=== PATIENT | female | born 1955 | race Caucasian/White ===

== ENCOUNTER 2017-11-08 05:14 | Inpatient (IN) ==
[2017-11-08 05:32] VITALS: BMI 36.5
[2017-11-08] MEDS ORDERED: TRANEXAMIC ACID 1,000 MG in NS 100 ML IV ONE ×2 (06:00→07:00)
[2017-11-08] MEDS ORDERED: MELOXICAM 15 MG TABLET PO ONE (06:00)
[2017-11-08] MEDS: LR 1,000 ML IV SCH ×2 (06:00→08:49)
[2017-11-08] MEDS ORDERED: METOCLOPRAMIDE 10mg/2ml INJECTION IVP ONE (06:00)
[2017-11-08] MEDS ORDERED: ACETAMINOPHEN 500 MG TABLET PO ONE (06:00)
[2017-11-08] MEDS ORDERED: LIDOCAINE 1% (10mg/ml) 2mL INJ PF SDV ID ONE (06:00)
[2017-11-08] MEDS ORDERED: FAMOTIDINE PB 20 MG/50 ML BAG IV ONE (06:00)
[2017-11-08] MEDS ORDERED: ONDANSETRON 4 MG/2 ML INJECTION IVP ONE (06:00)
[2017-11-08] MEDS ORDERED: CLINDAMYCIN PB 900 MG/50 ML BAG IV ONE (06:00)
[2017-11-08] MEDS ORDERED: NOZIN NASAL SWAB NAS ONE ×3 (06:12→11:19)
[2017-11-08] MEDS ORDERED: VANCOMYCIN 1,000 MG INJECTION ONE (07:43)
--- NOTE | 2017-11-08 07:50 | Anesthesia Preoperative Report ---
Anesthesia Preoperative Record - Date and Time Date: 11/08/17 Preoperative Diagnosis: Lt TKA M17.12 NPO Since Date: 11/07/17 NPO Since Time: 20:00 Allergies/Adverse Reactions: Allergies Allergy/AdvReac Type Severity Reaction Status Date / Time cephalexin Allergy Unknown Hives Verified 11/08/17 05:47 lisinopril AdvReac Unknown Cough Verified 11/08/17 05:47 Penicillins AdvReac Unknown all family Verified 11/08/17 05:47 members w/ severe reaction Sulfa (Sulfonamide AdvReac Unknown upset Verified 11/08/17 05:47 Antibiotics) stomach - Vital Signs Vital Signs: Temperature 98.1 F 11/08/17 05:33 Pulse Rate 60 11/08/17 05:57 Respiratory Rate 18 11/08/17 05:33 Blood Pressure 170/72 H 11/08/17 05:33 Pulse Oximetry 97 11/08/17 05:33 Height and Weight: Height 1.63 m Weight 96.5 kg Body Mass Index 36.5 - Medications Inpatient Medications: Current Medications Epinephrine HCl 0.25 mg/Bupivacaine HCl 30 ml/Morphine Sulfate 15 mg/Ketorolac Tromethamine 60 mg/Sodium Chloride 65.25 mls @ 0 mls/hr OPSITE INTRAOP ONE; Per Protocol PRN Reason: Protocol Stop: 11/08/17 08:01 Lactated Ringer's (Lactated Ringers) 1,000 mls @ 50 mls/hr IV .Q20H ANDREA Last Admin: 11/08/17 06:00 Dose: 50 mls/hr Isopropyl Alcohol (Nozin Nasal Swab) 1 each CONNOR O ONE Stop: 11/08/17 11:20 Isopropyl Alcohol (Nozin Nasal Swab) 1 each CONNOR 0600,1400,2200 [facility] Sodium Chloride (Iv Flush) 10 - 80 ml IV PRN PRN PRN Reason: [place] Home Medications: Home Medications Medication Instructions Recorded Confirmed Type Metformin HCl 500 mg PO BID #0 01/18/13 11/08/17 History Omeprazole Magnesium [Prilosec Otc] 20 mg PO DAILY #0 01/18/13 11/08/17 History Cozaar (losartan) 100 mg tablet 50 mg PO DAILY 30 Days tab 06/28/17 11/08/17 History Norvasc (amlodipine 2.5 mg) tablet 2.5 mg PO DAILY 30 Days tab 06/28/17 History Zocor (simvastatin) 20 mg tablet 20 mg PO DAILY 30 Days #30 tab 06/28/17 History Zyrtec (Cetirizine) 10 mg tablet 10 mg PO DAILY tab 06/28/17 11/08/17 History aspirin 81 mg tablet,delayed 81 mg PO DAILY tab 06/28/17 11/08/17 History release Colace (Docusate sodium) 100 mg 100 mg PO DAILY cap 08/24/17 11/08/17 History capsule Aleve (Naproxen) 220 mg capsule 440 mg PO BID PRN cap 10/03/17 11/03/17 History Tramadol [Ultram] 50 mg PO Q6H PRN 11/03/17 11/08/17 History Lactobacillus [Culturelle] 1 cap PO DAILY 11/08/17 11/08/17 History MethIMAzole [Tapazole] 10 mg PO QAM 11/08/17 11/08/17 History Is Patient on Beta Shireen?: No - Medical History Respiratory: DENIES: Sleep Apnea Cardiovascular: Reports: Hypertension, High Cholesterol Gastrointestional: Reports: Gastroesophageal Reflux Disease (controlled with med ) Neuro/Musculoskeletal: Reports: 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) Renal/Endocrine: Reports: Diabetes Mellitus Type 2, Thyroid Disease (hyper-sees Dr Steen) Other History: Reports: Anesthesia Reactions (severe n/v), Blood Transfusions ( no known reactions) - Surgical History GI Surgery/Treatments: Reports: Appendectomy, Cholecystectomy (open) Reproductive Surgery/Treatment: Reports: Hysterectomy (robot assisted lap hyst w / bso), Tubal Ligation Anesthesia Reactions: Nausea and Vomiting Hx Family Anesthesia Reaction: No History of Motion Sickness: No - Social History Smoking Status: Former smoker Hx Chewing Tobacco Use: No Second Hand Exposure: No Substance Use Type: does not use Alcohol Intake Frequency: does not drink - Pertinent Findings Laboratory: CBC and BMP 11/08/17 05:47 BMP 11/08/17 05:47 Sodium 144 Potassium 4.1 Chloride 107 Carbon Dioxide 24 BUN 18.0 H Creatinine 0.8 Glucose 106 Calcium 9.7 EKG: Sinus Rhythm - Physical Exam Respiratory Exam: Present: lungs clear, bilateral breath sounds equal Cardiovascular Exam: Present: regular rate and rhythm - Airway Assessment Mallampati Score: I TMD: 3 Fingerbreadths Neck Extension: fair Teeth: partial lower dentures Overall Assessment: no airway concerns - ASA ASA Score: 3 - Plan Anesthesia: General Inhalation Gases, Regional Block, Neuroaxial Regional/Trunk Block: Spinal Peripheral Nerve Block: Saphenous-Left - Discussion Discussion: Discussed risks/options/alternatives of anesthesia and questions answered. Patient consents. Nursing pain assessment noted. Present for Discussion: family member Attestation Statement: Prior to the delivery of any anesthetic medication, I examined the patient, developed the plan, obtained the patient's consent and discussed the risk and benefits of the procedure with the patient/guardian. - Additional Information Seen by Anesthesia: Yes
[2017-11-08] MEDS ORDERED: FentaNYL 100 MCG/2 ML INJECTION ONE (07:58)
[2017-11-08] MEDS ORDERED: MIDAZOLAM 2mg/2ml INJECTION ONE (07:59)
[2017-11-08] MEDS ORDERED: PROPOFOL 500 MG/50 ML VIAL IV ONE ×2 (07:59→09:07)
[2017-11-08] MEDS ORDERED: EPINEPHrine PF 0.25 MG, BUPIVACAINE 0.25% PF 30 ML, MORPHINE SULFATE 15 MG, KETOROLAC I... OPSITE ONE (08:00)
[2017-11-08] MEDS ORDERED: PHENYLEPHRINE INJ 10 MG/ML VIAL IV ONE (08:29)
[2017-11-08] MEDS ORDERED: SALINE FLUSH 10ml SYRINGE ONE (08:29)
[2017-11-08] MEDS ORDERED: ROPIVACAINE 0.5% (5mg/ml) 30ml INJ ONE (08:45)
[2017-11-08] MEDS ORDERED: ONDANSETRON 4 MG/2 ML INJECTION IVP PRN ×2 (09:04→10:39)
[2017-11-08] MEDS ORDERED: HYDROMORPHONE 2 MG/ML INJECTION IVP PRN (09:04)
[2017-11-08] MEDS ORDERED: VANCOMYCIN 1,000 MG INJECTION IAR ONE (09:20)
--- NOTE | 2017-11-08 09:34 | Operative Note ---
- Procedure Preoperative Diagnosis: Left knee primary degenerative joint disease Postoperative Diagnosis: Same as preoperative diagnosis. Surgeon: Aron Hickman MD Base Draw Operator: John Lewis Complications: None. Anesthesia: Spinal. Estimated Blood Loss: See Anesthesia Record. Fluids: Please see Anesthesia Record. Description of Procedure: Mrs. Fonseca and her left knee were identified and marked in the preoperative holding area. She was brought back to the operating suite after a saphenous nerve block was placed in the preoperative holding area. Spinal anesthetic was administered and she was placed supine on the operating table. The left lower extremity was prepped and draped in my normal sterile fashion. Timeout was performed. The Valkee robot was used during the surgery. She had a valgus deformity with no flexion contracture. Her deformity was mostly correctable. A standard anterior midline incision followed by medial parapatellar arthrotomy was performed. Anterior fat pad and meniscus were removed. The patella was resurfaced to a size 29. Tibial and femoral arrays were placed both within the original incision. Checkpoints were then placed both in the femur and the tibia. The bone was then registered with the Valkee robot. Osteophytes were removed and gaps were captured both 90 and 0 with correction. The Valkee robotic software was used to obtain 17 mm gaps throughout. The Valkee robotic arm was then used to assist with the bone cuts. Posterior osteophytes and remaining meniscus were removed. Trial components were placed. We used a 4 femur and a 4 tibia with a 9 mm spacer. She was a touch tight medially but after a partial release of the PCL and partial release of the MCL with 18-gauge needle she was well balanced. She tracked well throughout range of motion. The tibia was then stamped the proper rotation and components were press-fit into place. The knee was ranged one more time to ensure good stability, balance and patellar tracking. 1 g of vancomycin powder was then placed into the knee joint. The capsulotomy was then closed with #1 Vicryl. I then left my photography assistant to close the subcutaneous tissue with 2-0 Vicryl. Running 4-0 Monocryl will be used in the subcuticular layer. Dermabond will be used on the skin followed by sterile dressing. After drapes are removed patient will be taken to recovery room under the care of anesthesia.
--- NOTE | 2017-11-08 10:06 | Anesthesia Procedure Note ---
Peripheral Nerve Blockade - Procedure Physician: Satish Hickman MD Date: 11/08/17 Discussion: Discussed risks/options/alternatives of anesthesia and questions answered. Patient consents. Nursing pain assessment noted. Block Start: 10:00 Block Stop: 10:02 Blocked Employed: Adductor Canal, Single Injection Indication: Post-Operative Pain Approach: Left Side Confirmed Position: Supine Patient: Consent, Risks/Benefits Discussed, Informed, Post Block Act. Discussed IV Sedation: Yes (post op after SAB) Sedation: Awake Initial Vital Signs: Temperature 98.1 F 11/08/17 05:33 Temperature Source Oral 11/08/17 05:33 Pulse Rate 61 11/08/17 05:33 Respiratory Rate 18 11/08/17 05:33 Blood Pressure 170/72 H 11/08/17 05:33 Blood Pressure Mean 104 11/08/17 05:33 Blood Pressure Position Sitting 11/08/17 05:33 Pulse Oximetry 97 11/08/17 05:33 Oxygen Delivery Method 11/08/17 05:33 Post Vital Signs: Temperature 98.1 F 11/08/17 05:33 Pulse Rate 60 11/08/17 05:57 Respiratory Rate 18 11/08/17 05:33 Blood Pressure 170/72 H 11/08/17 05:33 Pulse Oximetry 97 11/08/17 05:33 Prep: Chlorhexadine/ETOH, Sterile Technique Ultrasound Used?: Yes - Nerve Simulator Muscle Response: No Paresthesia/Pain: None - Injectate Ropivacaine (%): 0.5 Ropivacaine (mL): 15 Was Epi 1:200,000 Used?: No Injection: Injection made incrementally with constant monitoring and aspiration every 5 ml
--- NOTE | 2017-11-08 10:16 | Anesthesia Postoperative Note ---
- Date and Time Date: 11/08/17 Time: 10:15 - Status Patient Participated in Evaluation: Patient Participated in Person Vital Signs: Temperature 97.3 F 11/08/17 09:55 Pulse Rate 91 11/08/17 09:55 Respiratory Rate 16 11/08/17 09:55 Blood Pressure 115/65 11/08/17 09:55 Pulse Oximetry 92 11/08/17 09:55 Respiratory Function: Airway Patent, Regular Respirations Cardiovascular Function: Regular Pulse Mental Status: Alert and Oriented Pain Intensity: 0 Hydration: IV Infusing Complications During Recover: None Apparent Post Anesthesia Care Notes: moves feet. - Follow-Up Instructions Instructions: Per Surgeon
--- NOTE | 2017-11-08 10:32 | XRay Report ---
EXAM: XR knee LT 2V DATE: 11/08/2017 7:39 AM ENCOUNTER: Subsequent INDICATION: Post op TKA COMPARISON: Left knee CT 10/18/2017, left knee radiographs 10/03/2017 TECHNIQUE: AP and lateral views of the knee were obtained. FINDINGS: Bony mineralization is normal. Postoperative changes of left total knee arthroplasty. The hardware components appear appropriately aligned without evidence of acute hardware complication. No acute periprosthetic osseous fracture. No significant joint effusion. IMPRESSION: Postoperative changes of left total knee arthroplasty without evidence of acute hardware complication or periprosthetic osseous abnormality. .
[2017-11-08] MEDS ORDERED: DiphenhydrAMINE 25 MG CAPSULE PO PRN (10:39)
[2017-11-08] MEDS ORDERED: LORazepam 1 MG TABLET PO PRN (10:39)
[2017-11-08] MEDS ORDERED: DiphenhydrAMINE 50 MG/ML INJECTION IVP PRN (10:39)
[2017-11-08] MEDS ORDERED: INSULIN ASPART 100unit/ml INJECTION SQ PRN (10:39)
[2017-11-08] MEDS ORDERED: NAPROXEN 220 MG TABLET PO PRN (10:39)
[2017-11-08] MEDS ORDERED: SALINE FLUSH 10ml SYRINGE IV PRN (11:19)
[2017-11-08] MEDS: NS 1,000 ML IV SCH (11:56)
[2017-11-08] MEDS: ACETAMINOPHEN 325 MG TABLET PO SCH ×4 (11:56→20:30)
[2017-11-08] MEDS: DOCUSATE SODIUM 100 MG CAPSULE PO SCH ×2 (11:57→20:16)
[2017-11-08] MEDS: AMLODIPINE 2.5 MG TABLET PO SCH (12:10)
[2017-11-08] MEDS: CETIRIZINE 10 MG TABLET PO SCH (12:10)
[2017-11-08] MEDS: METHIMAZOLE 10 MG TABLET PO SCH (12:11)
[2017-11-08] MEDS: LOSARTAN 50 MG TABLET PO SCH (12:11)
[2017-11-08] MEDS: OMEPRAZOLE 20 MG CAPSULE PO SCH (12:11)
[2017-11-08] MEDS: POLYETHYL GLYCOL 3350 17gm PACKET PO SCH (12:12)
[2017-11-08] MEDS: TRAMADOL 50 MG TABLET PO PRN ×2 (13:19→20:16)
[2017-11-08] MEDS ORDERED: NOZIN NASAL SWAB NAS SCH ×2 (14:00)
[2017-11-08] MEDS: CLINDAMYCIN PB 900 MG/50 ML BAG IV SCH ×2 (15:31→20:15)
[2017-11-08] MEDS: NOZIN NASAL SWAB NAS SCH ×2 (15:32→22:20)
[2017-11-08] MEDS ORDERED: SIMVASTATIN 20 MG TABLET PO SCH (21:00)
[2017-11-08] MEDS ORDERED: SENNOSIDES 8.6 MG TABLET PO SCH (21:00)
[2017-11-08] MEDS: ASPIRIN *EC* 81 MG TABLET PO SCH (22:19)
[2017-11-09] MEDS: NS 1,000 ML IV SCH ×2 (01:07→12:49)
[2017-11-09] MEDS: CLINDAMYCIN PB 900 MG/50 ML BAG IV SCH (02:30)
[2017-11-09] MEDS: TRAMADOL 50 MG TABLET PO PRN (05:51)
[2017-11-09] MEDS: NOZIN NASAL SWAB NAS SCH ×2 (05:52→13:12)
[2017-11-09] MEDS: OMEPRAZOLE 20 MG CAPSULE PO SCH (05:59)
[2017-11-09 06:55] VITALS: RESP 18
[2017-11-09] MEDS ORDERED: SENNOSIDES 8.6 MG TABLET PO PRN (07:29)
[2017-11-09] MEDS ORDERED: METFORMIN 500 MG TABLET PO SCH (08:00)
[2017-11-09] MEDS ORDERED: INSULIN ASPART 100unit/ml INJECTION SQ PRN (08:00)
--- NOTE | 2017-11-09 08:04 | Orthopedic Progress Note ---
Date: Subjective/Severity of Illness: Becca is doing well this AM. She doesn't think the Ultram is going to be enough for her pain control. She has tried Lortab in the past and thought it upset her stomach a little. She has not tried anything else. Denies CP, cough or SOA. No GI issues. She has been up with good tolerance. BGMs 124-167 range. Will resume Metformin this AM. Hgb 11.5 Orthopedic Objective PO Vital signs: Temperature 97.8 F 11/09/17 07:00 Pulse Rate 64 11/09/17 07:00 Respiratory Rate 18 11/09/17 07:00 Blood Pressure 138/67 11/09/17 07:00 Pulse Oximetry 95 11/09/17 07:00 Height and Weight: Height 5 ft 4 in Weight 182 lb 15.739 oz Body Mass Index 36.5 - Constitutional General Appearance: Present: alert, cooperative, no acute distress - Respiratory Exam Present: non-labored - Extremities Exam Extremities: Present: pulses intact. Absent: calf tenderness - Surgical Site Incision: clean, Mepilex dressing intact, no drainage - Integumentary Exam Present: pink, warm, dry - Neurological Exam Present: no deficits - Psychiatric Exam Present: alert, normal affect - Labs Result Diagrams: 11/09/17 04:21 11/09/17 04:21 Abnormal lab results 11/09/17 11/09/17 Range/Units 04:21 04:21 Hgb 11.5 L (12-16) GM/DL Hct 35.7 L (36-46) % Glucose 122 H (65-110) MG/DL H & H 11/09/17 Range/Units 04:21 Hgb 11.5 L (12-16) GM/DL Hct 35.7 L (36-46) % Orthopedic Assessment and Plan (1) Primary osteoarthritis of left knee Status: Acute Assessment and Plan: Current anti-coagulation protocol for VTE prophylaxis. SCD's for added protection. PT/OT services to improve independent function. Resume Metformin. Watch BGMs. SS insulin in place. Try Oxycodone IR for added pain control. Pt will take it with food to offset nausea. Discussed increased constipation with pt if we use Oxycodone. Discharge Planning per Case Management. - Anticoagulation Therapy Anticoagulation: ASA 81 mg PO BID x6 weeks Hospital Course Summary Disclaimer: The visit summary below is not to be considered part of the above Progress Note.
[2017-11-09] MEDS: ASPIRIN *EC* 81 MG TABLET PO SCH (08:57)
[2017-11-09] MEDS: Oxycodone *IR* 5 MG TABLET PO PRN ×2 (08:57→11:55)
[2017-11-09] MEDS: DOCUSATE SODIUM 100 MG CAPSULE PO SCH (08:58)
[2017-11-09] MEDS: AMLODIPINE 2.5 MG TABLET PO SCH (08:58)
[2017-11-09] MEDS: ACETAMINOPHEN 325 MG TABLET PO SCH ×2 (08:58→13:12)
[2017-11-09] MEDS: POLYETHYL GLYCOL 3350 17gm PACKET PO SCH (08:58)
[2017-11-09] MEDS: LOSARTAN 50 MG TABLET PO SCH (08:58)
[2017-11-09] MEDS: CETIRIZINE 10 MG TABLET PO SCH (08:58)
[2017-11-09] MEDS: METHIMAZOLE 10 MG TABLET PO SCH (08:59)
[2017-11-09 11:58] VITALS: BP 126/61; PULSE 62; TEMP 95.8; O2SAT 96
--- NOTE | 2017-11-09 13:18 | Discharge Summary ---
Orthopedic Discharge Info Date of admission: 11/08/17 05:14 Primary care physician: Haylee Cam MD Attending Physician: Satish Hickman MD Consults: 11/08/17 05:25 Consult to Anesthesiology [CONS] Routine Reason For Exam: Preoperative Assessment 11/08/17 10:39 Case Management Consult [CONS] Routine Reason For Exam: Discharge Planning DME-Walker [CONS] Routine Height: 5 ft 4 in Weight: 212 lb 11.937 oz Total Joint Outpatient Therapy [CONS] Routine Comment: Remove dressing in 2 weeks - Discharge Diagnosis (1) Primary osteoarthritis of left knee Status: Acute - Procedures Procedures: Left TKA - Laboratory Result Diagrams: 11/09/17 04:21 11/09/17 04:21 Laboratory: Abnormal lab results 11/09/17 11/09/17 Range/Units 04:21 04:21 Hgb 11.5 L (12-16) GM/DL Hct 35.7 L (36-46) % Glucose 122 H (65-110) MG/DL H & H 11/09/17 Range/Units 04:21 Hgb 11.5 L (12-16) GM/DL Hct 35.7 L (36-46) % Orthopedic Discharge HPI - HPI Comments This patient was admitted for elective surgical tx of end stage degenerative joint disease that failed to respond to conservative treatment. Further details of this is found in the admission H&P. Orthopedic Hospital Course Hospital course: 11/09/17 13:13 After appropriate preoperative clearance and signing of operative consent, the patient was given IV antibiotics, according to orthopedic protocol. The patient was taken to the operating room and underwent elective joint arthroplasty. Following surgery, antibiotics were discontinued less than 24 hours according to joint protocol. Appropriate anticoagulants were initiated and SCDs added for DVT prevention. The dressing was clean, dry, and intact. Pain control was obtained via multimodal approach. Bowel motivation addressed with scheduled and PRN medications. Early mobilization was initiated through PT services. Discharge arrangements made by a collaborative effort between the patient and Case Management. Follow-up is scheduled in 2-3 weeks. Discharge instructions given by orthopedic providers and nursing staff at discharge. Discharge condition was good. Ongoing care required?: No Discharge Plan - Med Rec/Dispo Referrals/Follow Up: John Lewis PA [[facility]] - 11/30/17 9:30 am Additional Instructions: [facility] ON 11/10/2017 AT 2:30PM FOR PHYSICAL THERAPY EVAL. PHONE , OPTION 3 Prescriptions: New Acetaminophen [Tylenol] 650 mg PO QID tablet Aspirin *EC* [Ecotrin] 81 mg PO BID tablet Oxycodone *IR* [Roxicodone *Ir*] 5 - 15 mg PO Q3H PRN #0 tablet PRN Reason: Pain PEG 3350 17gm PACKET [Miralax] 17 gm PO DAILY packet Meloxicam [Mobic] 7.5 mg PO DAILY #60 tab Continue Lactobacillus [Culturelle] 1 cap PO DAILY Metformin HCl 500 mg PO BID #0 Omeprazole Magnesium [Prilosec Otc] 20 mg PO DAILY #0 MethIMAzole [Tapazole] 10 mg PO QAM Zyrtec (Cetirizine) 10 mg tablet 10 mg PO DAILY tab Norvasc (amlodipine 2.5 mg) tablet 2.5 mg PO DAILY 30 Days tab Zocor (simvastatin) 20 mg tablet 20 mg PO DAILY 30 Days #30 tab Colace (Docusate sodium) 100 mg capsule 100 mg PO DAILY cap Cozaar (losartan) 100 mg tablet 50 mg PO DAILY 30 Days tab Discontinued Tramadol [Ultram] 50 mg PO Q6H PRN PRN Reason: Pain aspirin 81 mg tablet,delayed release 81 mg PO DAILY tab Aleve (Naproxen) 220 mg capsule 440 mg PO BID PRN cap PRN Reason: Pain - Disposition 01 Discharged Home, Self-Care - Dismissal Complete Discharge Instructions are:: Complete
[2017-11-10] MEDS ORDERED: BISACODYL 10 MG SUPPOSITORY RECTALLY SCH (20:00)
== END 2017-11-09 13:45 | disposition home or self-care (01) | DRG 470 ==
LOC: MED 05:14
PROVIDERS: ADMIT Orthopaedic Surgery; ATTEND Orthopaedic Surgery